=== PATIENT | female | born 1950 | race Caucasian/White ===

== ENCOUNTER → 2017-05-01 09:24 | Outpatient (CLI) | payer OTHER, SELFPAY ==
[2017-05-01 12:39] LABS: Anion Gap 7 (5-15); BUN 23 mg/dL (7-18); BUN/Creat Ratio 24.4 RATIO (10-20); Calcium,Total 9.1 mg/dL (8.5-10.1); Chloride 102 mmol/L (98-107); Creatinine, Serum 0.94 mg/dL (0.55-1.02); EST Glomerular Filtration Rate 63 mL/min (>60); Est Glom Filt Rate - Afr Amer 76 mL/min (>60); Glucose 92 mg/dL (74-106); Phosphorus 3.2 mg/dL (2.5-4.9); Potassium 3.7 mmol/L (3.5-5.1); Sodium Level 137 mmol/L (136-145); Thyroid Stim Hormone (TSH) 1.92 uIU/mL (0.358-3.74)
[2017-05-01 12:57] LABS: Vitamin D,25 Hydroxy 46.4 ng/mL (29.95-100.01)
== END ==
PROVIDERS: Family Provider Family Medicine; PCP Family Medicine; Visit Provider Family Medicine
DX: M81.0 Age-related osteoporosis without current pathological fracture (principal)
CPT/HCPCS: 36415; 80048; 82306; 82330; 84100; 84443

== ENCOUNTER → 2017-10-09 09:47 | Outpatient (CLI) | payer MEDICARE, OTHER, SELFPAY | PROVIDERS: Family Provider Family Medicine; PCP Family Medicine; Visit Provider Family Medicine | DX: Z12.31 Encounter for screening mammogram for malignant neoplasm of breast (principal) | CPT/HCPCS: 77063; 77067 ==

== ENCOUNTER → 2018-02-12 08:43 | Outpatient (CLI) | payer MEDICARE, OTHER, SELFPAY ==
[2018-02-12 10:46] LABS: AST(SGOT) 26 U/L (15-37); Alanine Aminotransfer ALT/SGPT 38 U/L (13-56); Alkaline Phosphatase 72 U/L (45-117); Anion Gap 10 (5-15); BUN 25 mg/dL (7-18); BUN/Creat Ratio 18.4 RATIO (10-20); Calcium,Total 9.4 mg/dL (8.5-10.1); Chloride 105 mmol/L (98-107); Cholesterol 185 mg/dL (200); Creatinine, Serum 1.36 mg/dL (0.55-1.02); EST Glomerular Filtration Rate 41 mL/min (>60); Est Glom Filt Rate - Afr Amer 50 mL/min (>60); Glucose 89 mg/dL (74-106); High Density Lipoprotein 40 mg/dL; Potassium 4.1 mmol/L (3.5-5.1); Sodium Level 141 mmol/L (136-145); Triglycerides 165 mg/dL; Very Low Density Lipoprotein 33 mg/dL (5-40)
--- OUTSIDE RECORDS SUMMARY | 2018-03-30 21:16 | XMS RPT_ITS ---
:1950 Author Organization OHIP Care Team Providers Name Role Phone José Fernandez Attending Unavailable José Fernandez Referring Unavailable Jim, [facility] Unavailable José Fernandez Attending Unavailable Jim, José Referring Unavailable [facility] Unavailable José Fernandez Attending Unavailable Jim, [facility] Unavailable PROBLEMS PROBLEMS DATE TYPE CONDITION / CODE ATTENDING STATUS SOURCE 02/12/2018 Unknown 401.9 - Unspecified Jim, Active [facility] essential [facility] hypertension / Hospital 401.9(ICD-9) Repository 02/12/2018 Unknown I10 - Essential Jim, Active [facility] [place] (primary) [facility] hypertension / Hospital I10(ICD-10) Repository 02/12/2018 Unknown 272.4 - Other and Ran[place]ka, Active [facility] unspecified [facility] hyperlipidemia / Hospital 272.4(ICD-9) Repository 02/12/2018 Unknown E78.5 - Jim, Active [place] Hyperlipidemia, [facility] unspecified / Hospital E78.5(ICD-10) Repository 10/09/2017 Unknown Z12.31 - Encounter Jim Active [facility] [place] for screening [facility] mammogram for Hospital malignant neoplasm Repository of breast / Z12.31(ICD-10) PROCEDURES PROCEDURES No Procedure Records FoundRESULTS RESULTS COMPREHENSIVE METABOLIC Collected: 02/12/2018 Status: F Source: [place] [facility] Order Comment: Order Date: 08/18/17 Order Info: [id number] - CMP Order Info: 84024-7 - LIPID TYPE CODE TESTS RESULT OUT OF RANGE REFERENCE UNITS LAB L501.0100 74-106 mg/dL Normal GLU 89 Result Comment: Please note revised GLUCOSE reference range effective 2017. LAB L501.1000 7-18 mg/dL High BUN 25 LAB L501.1100 0.55-1.02 mg/dL High CREAT,SERUM 1.36 Result Comment: The validity of the calculated GFR AND GFRAA in patients over 70 years has not been determined. Clinical correlation is essential. LAB L501.1110 >60 mL/min Low EST GFR 41 Result Comment: Non- GFR Calc LAB L501.1115 >60 mL/min Low EST GFR - AA 50 Result Comment: GFR Calc LAB L501.1300 10-20 RATIO Normal BUN/CRE 18.4 LAB L501.1500 6.4-8.2 g/dL T Normal PROT 8.0 LAB L501.1800 3.2-5.0 g/dL Normal ALB 4.0 LAB L501.1950 2.2-4.2 g/dL Normal GLOB 4.0 LAB L501.2000 0.9-2.4 RATIO Normal A/G 1.0 LAB L501.2200 8.5-10.1 mg/dL CA Normal 9.4 LAB L501.4100 15-37 U/L Normal AST 26 LAB L501.4305 45-117 U/L Normal ALK P 72 LAB L501.4405 13-56 U/L Normal ALT 38 LAB L501.4600 0.20-1.00 mg/dL T Normal BILI 0.90 LAB L501.5300 136-145 mmol/L NA Normal 141 LAB L501.5600 3.5-5.1 mmol/L K Normal 4.1 LAB L501.5900 98-107 mmol/L CL Normal 105 LAB L501.6100 21.0-32.0 mmol/L Normal CO2 26.0 LAB L501.6200 5-15 Normal GAP 10 Performed By: #### L500.4050, L500.4100 #### [facility] [place] [address], [address] LIPID PROFILE Collected: 02/12/2018 Status: F Source: [place] 8:48 AM [facility] [place] [place] REPOSITORY Order Comment: Order Date: 08/18/17 Order Info: [id number] - CMP Order Info: 71523-5 - LIPID TYPE CODE TESTS RESULT OUT OF RANGE REFERENCE UNITS LAB L501.4900 200 mg/dL Normal CHOL 185 Result Comment: <200 mg/dL Desirable 200-240 mg/dL Borderline >240 mg/dL High Risk LAB L501.5000 mg/dL Normal TRIG 165 Result Comment: The drugs N-Acetylcysteine and Metamizole may falsely depress this assay. Serum Triglycerides Reference Interval Normal <150 mg/dL Borderline high 150 - 199 mg/dL High 200 - 499 mg/dL Very High > or = 500 mg/dL LAB L501.6400 mg/dL Normal HDL 40 Result Comment: The drugs N-Acetylcysteine and Metamizole may falsely depress this assay. Reference Range HDL <40 mg/dL Low HDL Cholesterol HDL >or= 60 mg/dL High HDL Cholesterol LAB L501.6500 0-130 mg/dL Normal LDL 112 LAB L501.6600 5-40 mg/dL Normal VLDL 33 Performed By: #### L500.4050, L500.4100 #### [facility] [address] [place], [place], [address] SCREENING MAMM (CAD), Observed: 10/09/2017 Status: F Source: [place] TREVIZO 9:55 AM [facility] [place] [place] REPOSITORY [facility] Imaging Services [address] [place] [address] SCREENING MAMM (CAD), BILAT MR#: [id number] Acct: [id number] Name: SHAYLEE COUCH Rep #: [id number] : 1950 F 67 From: Erik Hearn MD PCP: José Fernandez MD Status: REG CLI Study: SCREENING MAMM (CAD), BILAT Date of Exam: 10/09/17 Exam# [id number] Ordering Dr: Jaswant Fernandez MD MAMMOGRAPHY - BILATERAL SCREENING 3-D LINCOLN SYNTHESIS REASON FOR EXAM: Female, 67 years old. Bilateral Screening 3-D tomosynthesis PERTINENT HISTORY: No significant family history. TECHNIQUE: 2-D mammograms and 3-D Lincoln synthesis of the breast (s) were performed. CAD was performed. COMPARISON: October 07, 2016, July 27, 2015 FINDINGS: The breast composition is almost entirely fat. Scattered benign calcifications abnormal-appearing are seen. No dense spiculated masses or suspicious microcalcifications are identified. No architectural distortion is identified. There is no skin thickening or retraction. There has been no significant change since the prior study. BI/SCREENING MAMM (CAD), BILAT IMPRESSION: No mammographic signs of malignancy. Routine yearly mammograms recommended. ASSESSMENT CATEGORY: BIRADS Category 2: Benign. A letter regarding these results will be sent to the patient by the facility within 30 days. FOLLOW UP RECOMMENDATION: Yearly follow up mammogram recommended. (A) Approximately 10% of breast cancers are not detected by mammography. A normal mammogram should not delay biopsy of a clinically suspicious abnormality. Electronically Signed: Erik Hearn MD at 18:46 EDT , Service support , CC: José Fernandez MD Wing Commander: Signed CALCIUM IONIZED Collected: 05/01/2017 Status: F Source: [place] 9:50 AM [facility] [place] [place] REPOSITORY TYPE CODE TESTS RESULT OUT OF RANGE REFERENCE UNITS LAB L3100.9600 4.5-5.6 mg/dL Normal IONIZED CA 5.4 Result Comment: Performed at: - [facility] [id number] Automatic Pad Making Machine Operator: Jose Luis Fine PhD, Phone: [phone] Performed By: #### L3100.9600 #### [facility] (refer to report for specific site) refer to report for address and phone number BASIC METABOLIC Collected: 05/01/2017 Status: F Source: [place] PROFILE (BMP) 9:29 AM [facility] [place] [place] REPOSITORY Order Comment: Order Date: 10/21/16 Order Info: [id number] - BMP Order Info: [id number] - PHOS Order Info: 3016-3 - TSH TYPE CODE TESTS RESULT OUT OF RANGE REFERENCE UNITS LAB L501.0100 74-106 mg/dL Normal GLU 92 Result Comment: Please note revised GLUCOSE reference range effective 2017. LAB L501.1000 7-18 mg/dL High BUN 23 LAB L501.1100 0.55-1.02 mg/dL Normal CREAT,SERUM 0.94 Result Comment: The validity of the calculated GFR AND GFRAA in patients over 70 years has not been determined. Clinical correlation is essential. LAB L501.1110 >60 mL/min Normal EST GFR 63 Result Comment: Non- GFR Calc LAB L501.1115 >60 mL/min Normal EST GFR - AA 76 Result Comment: GFR Calc LAB L501.1300 10-20 RATIO High BUN/CRE 24.4 LAB L501.2200 8.5-10.1 mg/dL CA Normal 9.1 LAB L501.5300 136-145 mmol/L NA Normal 137 LAB L501.5600 3.5-5.1 mmol/L K Normal 3.7 LAB L501.5900 98-107 mmol/L CL Normal 102 LAB L501.6100 21.0-32.0 mmol/L Normal CO2 28.0 LAB L501.6200 5-15 Normal GAP 7 Performed By: #### L500.2500, L501.2300, L501.9520, L506.1000 #### [facility] [address] [place], [address] PHOSPHORUS Collected: 05/01/2017 Status: F Source: [place] 9:29 AM [facility] [place] [place] REPOSITORY Order Comment: Order Date: 10/21/16 Order Info: [id number] - BMP Order Info: [id number] - PHOS Order Info: 3016-3 - TSH TYPE CODE TESTS RESULT OUT OF RANGE REFERENCE UNITS LAB L501.2300 2.5-4.9 mg/dL Normal PHOS 3.2 Performed By: #### L500.2500, L501.2300, L501.9520, L506.1000 #### [facility] [address] [place], [address] THYROID STIM HORMONE Collected: 05/01/2017 Status: F Source: [place] (TSH) 9:29 AM [facility] [place] [place] REPOSITORY Order Comment: Order Date: 10/21/16 Order Info: [id number] - BMP Order Info: [id number] - PHOS Order Info: 3016-3 - TSH TYPE CODE TESTS RESULT OUT OF RANGE REFERENCE UNITS LAB L501.9520 0.358-3.74 uIU/mL Normal TSH 1.92 Performed By: #### L500.2500, L501.2300, L501.9520, L506.1000 #### [facility] [address] [place], [address] VITAMIN D,25 HYDROXY Collected: 05/01/2017 Status: F Source: [place] 9:29 AM [facility] [place] [place] REPOSITORY Order Comment: Order Date: 10/21/16 Order Info: [id number] - VITD25 TYPE CODE TESTS RESULT OUT OF RANGE REFERENCE UNITS LAB L506.1000 29.95-100.01 ng/mL Normal Vitamin D 46.4 25-OH Result Comment: Vitamin D 25(OH) Status Range Deficiency <20 ng/mL (50nmol/L) Insuffciency 20 - 30 ng/mL (50 - 75 nmol/L) Sufficiency 30 - 100 ng/mL (75 - 250 nmol/L) Toxicity >100 ng/mL (>250 nmol/L) Performed By: #### L500.2500, L501.2300, L501.9520, L506.1000 #### [facility] [address] [place], [address] ALLERGIES ALLERGIES DATE TYPE / CODE NAME / CODE REACTION SEVERITY SOURCE 05/23/2013 Drug simvastatin/ Pain in joints Unknown [facility] Allergy/4160 [id number](R [facility] [address](SNOMED XNORM) Repository CT) ENCOUNTERS ENCOUNTERS ADMIT/DISCHARGE ACCOUNT ADMITTING ENCOUNTER LOCATION SOURCE NUMBER CLASS 02/12/2018 [id number] Ambulatory [facility] [place] 7 [facility] ing:MTLAB Repository 10/09/2017 [id number] Ambulatory [place] [facility] 5 [facility] ing:OPBI Repository 05/01/2017 [id number] Ambulatory [facility] 9 [facility] ing:MTLAB Repository PAYERS PAYERS ENCOUNTER GUARANTOR PAYER SUBSCRIBER SOURCE 02/12/2018 ANIKET [id number] Primary SHAYLEE LUA Insurance:MEDICARE BODLEDOB: [facility] [place] A BPolicy [id number] Hospital [address]Djz: (330) Number: Repository [phone] () [id number] Date:2018-02-12 02/12/2018 Secondary SHAYLEE L [facility] [place] Insurance:AETNA SR BODLEDOB: [id number] Number: Repository [id number] Date:[id number] SENIOR SUPPLEMENT [address] [place] [id number]: 02/12/2018 Tertiary NOT GIVENUNK [place] Insurance:SELF PAY [facility]: Effective Repository Date:2018-02-12 10/09/2017 ANIKET [id number] Primary SHAYLEE LUA Insurance:MEDICARE BODLEDOB: [place] PART A BPolicy [id number] [address]Jij: (330) Number: Repository [phone] () [id number] Date:2017-08-20 10/09/2017 Secondary SHAYLEE L [facility] [place] Insurance:AETNA SR BODLEDOB: Community SUPPLEMENT [facility] [id number] Hospital Number: Repository [id number] Date:[id number] SENIOR SUPPLEMENT [id number] [place] [id number]: 10/09/2017 Tertiary NOT GIVENUNK [place] Insurance:SELF PAY [facility] Number: Effective Repository Date:2017-08-20 05/01/2017 ANIKET [id number] Primary ANIKET Cristopher LUA Insurance:AULTCAREPol BODLEDOB: [place] icy Number: [id number] Hospital [address]Hwk: [phone] [id number] Repository [phone] () Date:[id number] [address] [place] [id number]: 05/01/2017 Secondary NOT GIVENUNK [place] Insurance:SELF PAY [facility] Number: Effective Repository Date:2017-05-01
== END ==
PROVIDERS: Family Provider Family Medicine; PCP Family Medicine; Referring Provider Family Medicine; Visit Provider Family Medicine
DX: I10 Essential (primary) hypertension (principal); E78.5 Hyperlipidemia, unspecified
CPT/HCPCS: 36415; 80053; 80061

== ENCOUNTER → 2018-09-07 08:00 | Outpatient (CLI) | payer MEDICARE, OTHER, SELFPAY | PROVIDERS: Family Provider Family Medicine; PCP Family Medicine; Referring Provider Family Medicine; Visit Provider Family Medicine | DX: Z00.00 Encounter for general adult medical examination without abnormal findings (principal) ==

== ENCOUNTER → 2018-09-20 09:40 | Outpatient (CLI) | payer MEDICARE, OTHER, SELFPAY ==
[2018-09-20 12:43] LABS: Vitamin D,25 Hydroxy 51.3 ng/mL (29.95-100.01)
[2018-09-20 12:53] LABS: Anion Gap 7 (5-15); BUN 21 mg/dL (7-18); BUN/Creat Ratio 18.6 RATIO (10-20); Calcium,Total 9.4 mg/dL (8.5-10.1); Chloride 105 mmol/L (98-107); Creatinine, Serum 1.13 mg/dL (0.55-1.02); EST Glomerular Filtration Rate 51 mL/min (>60); Est Glom Filt Rate - Afr Amer 62 mL/min (>60); Glucose 100 mg/dL (74-106); Potassium 4.2 mmol/L (3.5-5.1); Sodium Level 140 mmol/L (136-145); Thyroid Stim Hormone (TSH) 1.66 uIU/mL (0.358-3.74)
== END ==
PROVIDERS: Family Provider Family Medicine; PCP Family Medicine; Visit Provider Family Medicine
DX: M81.0 Age-related osteoporosis without current pathological fracture (principal); E78.5 Hyperlipidemia, unspecified
CPT/HCPCS: 36415; 80048; 82306; 84443

== ENCOUNTER → 2018-10-19 14:04 | Outpatient (CLI) | payer MEDICARE, OTHER, SELFPAY ==
--- NOTE | 2018-10-19 14:06 | BI_ITS ---
MAMMOGRAPHY - BILATERAL SCREENING 3-D TOMOSYNTHESIS REASON FOR EXAM: Female, 68 years old. Bilateral Screening 3-D tomosynthesis PERTINENT HISTORY: No significant family history. TECHNIQUE: 2-D mammograms and 3-D Tomosynthesis of the breast (s) were performed. CAD was performed. COMPARISON: 10/09/2017, 10/07/2016, 07/27/2015 FINDINGS: The breast composition is composed of scattered fibroglandular density. Scattered benign calcifications are seen. No dense spiculated masses or suspicious microcalcifications are identified. No architectural distortion is identified. There is no skin thickening or retraction. There has been no significant change since the prior study. BI/SCREEN MAMM (CAD) W/CARLITOS BILAT IMPRESSION: No mammographic signs of malignancy. Routine yearly mammograms recommended. ASSESSMENT CATEGORY: BIRADS Category 2: Benign. A letter regarding these results will be sent to the patient by the facility within 30 days. FOLLOW UP RECOMMENDATION: Yearly follow up mammogram recommended. (A) Approximately 10% of breast cancers are not detected by mammography. A normal mammogram should not delay biopsy of a clinically suspicious abnormality. Electronically Signed: Fito Botello MD at 15:36 EDT Tel [phone], Service support ,
--- NOTE | 2018-10-19 14:14 | BD_ITS ---
STUDY: DUAL ENERGY X-RAY ABSORPTIOMETRY / DXA REASON FOR EXAM: Female, 68 years old. The patient is postmenopausal. TECHNIQUE: Bone Mineral Density (BMD) measurements of lumbar spine and bilateral hips were obtained. COMPARISON: Comparison is made with prior study dated October 07, 2016. FINDINGS: Lumbar Spine (L1-L4): g/cm2 (0.786) / T-score (-3.2) / Z-score (-1.5) Findings are suggestive of osteoporosis with a high fracture risk. Left Femur Total: g/cm2 (0.847) / T-score (-1.3) / Z-score (0.0) Left Femoral Neck: g/cm2 (0.672) / T-score (-2.6) / Z-score (-1.1) Right Femur Total: g/cm2 (0.815) / T-score (-1.5) / Z-score (-0.2) Right Femoral Neck: g/cm2 (0.757) / T-score (-2.0) / Z-score (-0.5) The T-Scores on the most recent prior examination were: Lumbar Spine (L1-L4): There has been improvement of bone density since the previous examination. Left Femur Total: which represents an improvement of 5.5%. Right Femur Total: which represents an improvement of 3%. BD/Dexa Bone Density Study IMPRESSION: The patient is considered osteoporotic as outlined below according to World Chaim Organization (WHO) criteria with a high fracture risk. There has been improvement of bone density since the previous examination. Reference Information: The T-score is the number of standard deviations above or below the standard which is normal for young adults at their peak bone mineral density. The World Health Organization (WHO) interprets the T-scores as follows: Above -1 Normal bone density Between -1 and -2.5 Osteopenia Equal to / or below -2.5 Osteoporosis As a practical clinical guideline, osteopenia may be graded as follows: Mild -1 through -1.5 Moderate -1.6 through -2.0 Severe -2.1 through -2.4 The Z-score is the number of standard deviations above or below age-matched controls. A Z-score of less than -1.5 would be considered abnormal. References: 1. NIH Osteoporosis and Related Bone Diseases http://www.osteo.org 2. International Society for Clinical Densitometry http://www.iscd.org 3. National Osteoporosis Foundation http://www.nof.org Electronically Signed: Maxi Shields, at 9:07 EDT , Service support ,
== END ==
PROVIDERS: Family Provider Family Medicine; PCP Family Medicine; Referring Provider Family Medicine; Visit Provider Family Medicine
DX: Z12.31 Encounter for screening mammogram for malignant neoplasm of breast (principal); Z78.0 Asymptomatic menopausal state
CPT/HCPCS: 77063; 77067; 77080

== ENCOUNTER → 2019-03-21 08:38 | Outpatient (CLI) | payer MEDICARE, OTHER, SELFPAY ==
[2019-03-21 11:17] LABS: BUN 23 mg/dL (7-18); Creatinine, Serum 1.15 mg/dL (0.55-1.02); Glucose 100 mg/dL (74-106)
[2019-03-21 11:18] LABS: AST(SGOT) 21 U/L (15-37); Alanine Aminotransfer ALT/SGPT 38 U/L (13-56); Albumin, Serum 4.2 g/dL (3.2-5.0); Alkaline Phosphatase 74 U/L (45-117); Anion Gap 6 (5-15); Calcium,Total 9.3 mg/dL (8.5-10.1); Chloride 105 mmol/L (98-107); Cholesterol 155 mg/dL (200); EST Glomerular Filtration Rate 50 mL/min (>60); Est Glom Filt Rate - Afr Amer 60 mL/min (>60); High Density Lipoprotein 35 mg/dL; Potassium 3.8 mmol/L (3.5-5.1); Protein, Total 8.2 g/dL (6.4-8.2); Sodium Level 137 mmol/L (136-145); Thyroid Stim Hormone (TSH) 2.24 uIU/mL (0.358-3.74); Triglycerides 186 mg/dL; Very Low Density Lipoprotein 37 mg/dL (5-40)
[2019-03-21 11:19] LABS: Vitamin D,25 Hydroxy 58.9 ng/mL (29.95-100.01)
== END ==
PROVIDERS: PCP Family Medicine; Visit Provider Family Medicine
DX: I10 Essential (primary) hypertension (principal); M81.0 Age-related osteoporosis without current pathological fracture
CPT/HCPCS: 36415; 80053; 80061; 82306; 84443

== ENCOUNTER → 2019-09-26 09:08 | Outpatient (CLI) | payer MEDICARE, OTHER, SELFPAY ==
[2019-09-26 10:14] LABS: PTHIN 38.2 pg/mL (18.4-80.1)
[2019-09-26 10:18] LABS: Vitamin D,25 Hydroxy 94.6 ng/mL
[2019-09-26 10:25] LABS: ALB/GLOB Ratio 1.1 RATIO (0.9-2.4); AST(SGOT) 25 U/L (15-37); Alanine Aminotransfer ALT/SGPT 34 U/L (13-56); Albumin, Serum 4.2 g/dL (3.2-5.0); Alkaline Phosphatase 62 U/L (45-117); Anion Gap 5 (5-15); BUN 33 mg/dL (7-18); BUN/Creat Ratio 27.3 RATIO (10-20); Calcium,Total 9.1 mg/dL (8.5-10.1); Chloride 104 mmol/L (98-107); Cholesterol 144 mg/dL (200); Creatinine, Serum 1.21 mg/dL (0.55-1.02); EST Glomerular Filtration Rate 47 mL/min (>60); Est Glom Filt Rate - Afr Amer 57 mL/min (>60); Globulin 3.9 g/dL (2.2-4.2); Glucose 94 mg/dL (74-106); High Density Lipoprotein 36 mg/dL; Potassium 3.8 mmol/L (3.5-5.1); Protein, Total 8.1 g/dL (6.4-8.2); Sodium Level 138 mmol/L (136-145); Triglycerides 126 mg/dL; Very Low Density Lipoprotein 25 mg/dL (5-40)
== END ==
PROVIDERS: PCP Family Medicine; Referring Provider Family Medicine; Visit Provider Family Medicine
DX: E78.5 Hyperlipidemia, unspecified (principal); M81.0 Age-related osteoporosis without current pathological fracture
CPT/HCPCS: 36415; 80053; 80061; 82306; 83970

== ENCOUNTER → 2019-09-30 17:27 | Outpatient (CLI) | payer MEDICARE, OTHER, SELFPAY | PROVIDERS: PCP Family Medicine; Referring Provider Family Medicine; Visit Provider Family Medicine | DX: Z20.828 Contact with and (suspected) exposure to other viral communicable diseases (principal) | CPT/HCPCS: 87635; U0003 ==

== ENCOUNTER → 2019-10-24 14:23 | Outpatient (CLI) | payer MEDICARE, OTHER, SELFPAY ==
--- NOTE | 2019-10-24 14:26 | BI_ITS ---
MAMMOGRAPHY - BILATERAL SCREENING REASON FOR EXAM: Female, 69 years old. Routine annual screening examination. PERTINENT HISTORY: Non-contributory. TECHNIQUE: Digital bilateral breast carlitos (3D mammographic acquisition) in the CC and MLO projections. 2-D mediolateral oblique (MLO) and craniocaudad (CC) views of both breasts were obtained. CAD: Full Field Digital Mammography with Computer Added Detection was performed. COMPARISON: Comparison is made with prior study dated 10/19/2018 and 10/09/2017. FINDINGS: Breast Composition: The breasts are almost entirely fatty. There are no dominant masses or suspicious calcifications. Small benign-appearing bilateral axillary lymph nodes. No other significant abnormalities are identified. There has been no significant change since the prior study. BI/SCREEN MAMM (CAD) W/CARLITOS BILAT IMPRESSION: Stable bilateral screening mammogram. Yearly follow-up mammogram recommended. (A) ASSESSMENT CATEGORY: BIRADS Category 2: Benign. A letter regarding these results will be sent to the patient by the facility within 30 days. Approximately 10% of breast cancers are not detected by mammography. A normal mammogram should not delay biopsy of a clinically suspicious abnormality. [id number] Electronically Signed: Maxi Shields, at 15:33 EDT , Service support ,
== END ==
PROVIDERS: PCP Family Medicine; Referring Provider Family Medicine; Visit Provider Family Medicine
DX: Z12.31 Encounter for screening mammogram for malignant neoplasm of breast (principal)
CPT/HCPCS: 77063; 77067

== ENCOUNTER → 2020-02-17 12:18 | Outpatient (CLI) | payer MEDICARE, OTHER, SELFPAY ==
[2020-02-18 09:13] LABS: SARS-COV-2 TOTAL ABS Reactive (Nonreactive)
[2020-02-20 10:15] LABS: Vitamin B12 337 pg/mL (211-911)
[2020-02-23 13:27] LABS: Vitamin B1, Thiamine 131.4 nmol/L (66.5-200.0)
== END ==
PROVIDERS: PCP Family Medicine; Referring Provider Family Medicine; Visit Provider Family Medicine
DX: G62.9 Polyneuropathy, unspecified (principal)
CPT/HCPCS: 36415; 82607; 84425; 86769

== ENCOUNTER → 2020-03-21 09:49 | Outpatient (CLI) | payer MEDICARE, OTHER, SELFPAY ==
[2020-03-21 12:25] LABS: Anion Gap 3 (5-15); BUN 25 mg/dL (7-18); BUN/Creat Ratio 25.1 RATIO (10-20); Calcium,Total 9.4 mg/dL (8.5-10.1); Chloride 109 mmol/L (98-107); EST Glomerular Filtration Rate 59 mL/min (>60); Est Glom Filt Rate - Afr Amer 71 mL/min (>60); Glucose 86 mg/dL (74-106); Potassium 4.2 mmol/L (3.5-5.1); Sodium Level 140 mmol/L (136-145)
== END ==
PROVIDERS: PCP Family Medicine; Referring Provider Family Medicine; Visit Provider Family Medicine
DX: I10 Essential (primary) hypertension (principal)
CPT/HCPCS: 36415; 80048

== ENCOUNTER → 2020-10-25 11:50 | Outpatient (CLI) | payer MEDICARE, OTHER, SELFPAY ==
--- NOTE | 2020-10-25 11:50 | BI_ITS ---
MAMMOGRAPHY - BILATERAL SCREENING REASON FOR EXAM: Female, 70 years old. Routine annual screening examination. PERTINENT HISTORY: Non-contributory. TECHNIQUE: Digital bilateral breast carlitos (3D mammographic acquisition) in the CC and MLO projections. 2-D mediolateral oblique (MLO) and craniocaudad (CC) views of both breasts were obtained. CAD: Full Field Digital Mammography with Computer Added Detection was performed. COMPARISON: Comparison is made with prior study 10/24/2019 and 10/19/2018. FINDINGS: Breast Composition: The breasts are almost entirely fatty. There are no dominant masses or suspicious calcifications. Stable small benign appearing bilateral axillary lymph nodes. No other significant abnormalities are identified. There has been no significant change since the prior study. BI/SCRN MAMM (CAD)W/CARLITOS BILAT IMPRESSION: Stable bilateral screening mammogram. Yearly follow-up mammogram recommended. (A) ASSESSMENT CATEGORY: BIRADS Category 2: Benign. A letter regarding these results will be sent to the patient by the facility within 30 days. Approximately 10% of breast cancers are not detected by mammography. A normal mammogram should not delay biopsy of a clinically suspicious abnormality. [id number] Electronically Signed: Maxi Shields MD at 12:35 EDT , Service support ,
--- NOTE | 2020-10-25 12:08 | BD_ITS ---
STUDY: DUAL ENERGY X-RAY ABSORPTIOMETRY / DXA REASON FOR EXAM: Female, 70 years old. 733.00OsteoporosisBONE DENSITY REASON FOR EXAM TECHNIQUE: Bone Mineral Density (BMD) measurements of lumbar spine and bilateral hips were obtained. COMPARISON: Comparison is made with prior study 10/19/2018. FINDINGS: Lumbar Spine (L1-L4): g/cm2 (0.819) / T-score (-1.8) / Z-score (0.2) Findings are suggestive of osteopenia with a moderate fracture risk. Left Femur Total: g/cm2 (0.759) / T-score (-1.5) / Z-score (0.0) Left Femoral Neck: g/cm2 (0.570) / T-score (-2.5) / Z-score (-0.8) Right Femur Total: g/cm2 (0.743) / T-score (-1.6) / Z-score (-0.2) Right Femoral Neck: g/cm2 (0.54) / T-score (-2.7) / Z-score (-0.9) The T-Scores on the most recent prior examination were: Lumbar Spine (L1-L4): There has been improvement of bone density since the previous examination. Left Femur Total: which represents a worsening of 3.4%. Right Femur Total: which represents a worsening of 1.5%. BD/Dexa Bone Density Study IMPRESSION: The patient is considered osteoporotic as outlined below according to World Chaim Organization (WHO) criteria with a high fracture risk. There has been worsening of bone density since the previous examination. Reference Information: The T-score is the number of standard deviations above or below the standard which is normal for young adults at their peak bone mineral density. The World Health Organization (WHO) interprets the T-scores as follows: Above -1 Normal bone density Between -1 and -2.5 Osteopenia Equal to / or below -2.5 Osteoporosis As a practical clinical guideline, osteopenia may be graded as follows: Mild -1 through -1.5 Moderate -1.6 through -2.0 Severe -2.1 through -2.4 The Z-score is the number of standard deviations above or below age-matched controls. A Z-score of less than -1.5 would be considered abnormal. References: 1. NIH Osteoporosis and Related Bone Diseases www osteo.org 2. International Society for Clinical Densitometry www iscd.org 3. National Osteoporosis Foundation www nof.org Electronically Signed: Maxi Shields MD at 7:57 EDT , Service support ,
== END ==
PROVIDERS: PCP Family Medicine; Referring Provider Family Medicine; Visit Provider Family Medicine
DX: Z12.31 Encounter for screening mammogram for malignant neoplasm of breast (principal); M81.0 Age-related osteoporosis without current pathological fracture
CPT/HCPCS: 77063; 77067; 77080

== ENCOUNTER 2020-10-30 05:18 | Day surgery (SDC) | payer MEDICARE, OTHER, SELFPAY ==
[2020-10-30 05:41] VITALS: BP 133/75; PULSE 64; RESP 16; TEMP 36.8; O2SAT 100; BMI 25.5
--- NOTE | 2020-10-30 06:13 | HP.PCM_ITS ---
HPI - General HPI Narrative SHAYLEE COUCH, is a 70 F who presents for a surveillance colonoscopy. She has a previous history of colon polyps. She states that she has not had polyps on her last couple colonoscopies. No abdominal pain. No bright red blood per rectum or melena. She did have Covid-19 January 2020. She claims that she did not require hospitalization. She claims no lingering symptoms. No history of DVT. She states she was able to tolerate her bowel prep. [facility] Medical History (Updated 10/30/20 @ 06:[address] Terry Soto MD) Cardiology follow-up encounter Chest pain Gastric reflux High cholesterol History of diverticulitis History of stress test Hypertension Non-smoker Wears glasses Home Medications aspirin 81 mg PO DAILY@0800 05/23/13 [History Last Taken 10/22/20] atorvastatin 10 mg PO QHS 05/23/13 [History Last Taken Unknown] calcium phos,dibas-vitamin D3 [Vitamin D (with calcium)] 1 tab PO BID 10/24/20 [History Last Taken Unknown] cholecalciferol (vitamin D3) [Vitamin D3] 50 mcg PO DAILY 10/24/20 [History Last Taken Unknown] denosumab [Prolia] 60 mg SUBCUT .Q6MO 10/24/20 [History Last Taken Unknown] famotidine [Pepcid] 20 mg PO BID 10/24/20 [History Last Taken 10/30/20] lisinopril 20 mg PO DAILY 10/24/20 [History Last Taken 10/30/20] vitamin X56-tiyra acid 1 tab PO DAILY 10/24/20 [History Last Taken Unknown] Allergy/AdvReac Type Severity Reaction Status Date / Time simvastatin AdvReac Pain in Verified 10/30/20 05:38 joints Surgical History (Updated 10/24/20 @ 13:33 by Corina Frank) Hx of bilateral cataract extraction Hx of colonoscopy Social History Smoking Status: Never smoker ROS Constitutional Constitutional: Reports systems reviewed and no addt'l complaints, except as documented Cardiovascular Cardiovascular: Denies chest pain Respiratory/Chest Respiratory/Chest: Denies shortness of breath at rest Gastrointestinal Gastrointestinal: Denies abdominal pain, change in bowel habits, hematochezia or melena Vital Signs Vital Signs Vital Signs: 10/30/20 05:41 Temperature 98.2 F Temperature Source Temporal Pulse Rate 64 Respiratory Rate 16 Respiratory Pattern Normal Blood Pressure 133/75 H Blood Pressure Mean 94 Blood Pressure Source Monitor Blood Pressure Position Semi-Fowlers Blood Pressure Location Right Arm Pulse Ox 100 Oxygen Delivery Method Room Air Weight Weight: 135 lb 2.294 oz Body Mass Index (BMI) 25.5 Physical Exam Const alert, oriented x3 and no apparent distress General Appearance: cooperative and comfortable Eyes General Eye: normal appearance of both eyes Neck General: normal visual inspection Chest inspection of chest normal Resp Effort and Inspection: able to speak in complete sentences and symmetric chest movement Auscultation: clear to auscultation bilaterally Cardio regular rate and regular rhythm GI soft to palpation, non-tender and non-distended Extremity no calf tenderness Neuro oriented x3 Psych thought process normal Assessment & Plan Assessment/Plan (1) Screening for intestinal cancer: PLAN: 70-year-old female. She presents via open access today for screening colonoscopy. She carries a previous history of remote colon polyps. She is aware of the technique, benefit, risk, alternatives. She has had an opportunity to ask and have questions answered. We will proceed as noted. Terry Soto M.D., F.A.C.S.
[2020-10-30] MEDS: Midazolam 5 MG/ML Syringe (06:27)
--- NOTE | 2020-10-30 06:30 | COLBX_PTH ---
PATIENT: SHAYLEE COUCH LOC: EN U#:[id number] AGE/SX: 70/F ROOM: RE10/30/[address]: Dr. Terry Soto MD : 1950 BED: DIS: 10/30/2020 SPEC #: [id number] RECD: 10/30/20 11:47 STATUS: GOLDIE TORRES #: [id number] ELOY: 10/30/20 06:[address]: Terry Soto DEPT: SURGICAL PATHOLOGY RECD BY: Leticia Jordan ENTERED: 10/30/20 12:59 SP TYPE: COLON BX OTHR DR: Dr. José Fernandez MD Tissues: SPLENIC FLEXURE Procedures: Surgery Specimen Level IV HEADER OPERATION: Colonoscopy ? 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 Mucosal lipoma. AM:randi 10/31/2020 MICROSCOPIC DESCRIPTION Slides are reviewed. GROSS DESCRIPTION Received in fixative is one container labeled with the patient's name and designated biopsy of splenic flexure polyp. The specimen consists of multiple irregular fragments of light nolasco soft tissue that in aggregate measure 0.5 x 0.2 x 0.1 cm. The specimen is totally submitted in one cassette. / KAUSHIK:randi 10/30/20 TC:5 CPT: 67336
--- NOTE | 2020-10-30 06:49 | OP.COLON_ITS ---
Patient Name: Lluvia Corado Procedure Date: 10/30/2020 6:08 AM Date of : 1950 Age: 70 Procedure: Colonoscopy Indications: High risk colon cancer surveillance: Personal history of colonic polyps Providers: Terry Soto MD Medicines: Midazolam 3 mg IV, Meperidine 100 mg IV Patient Profile: Last Colonoscopy: 5 years ago. Complications: No immediate complications. Procedure: Pre-Anesthesia Assessment: - Prior to the procedure, a History and Physical was performed, and patient medications and allergies were reviewed. The patient's tolerance of previous anesthesia was also reviewed. The risks and benefits of the procedure and the sedation options and risks were discussed with the patient. All questions were answered, and informed consent was obtained. Prior Anticoagulants: The patient has taken no previous anticoagulant or antiplatelet agents. ASA Grade Assessment: I - A normal, healthy patient. After reviewing the risks and benefits, the patient was deemed in satisfactory condition to undergo the procedure. After I obtained informed consent, the scope was passed under direct vision. Throughout the procedure, the patient's blood pressure, pulse, and oxygen saturations were monitored continuously. The colonoscope was introduced through the anus and advanced to the cecum, identified by appendiceal orifice and ileocecal valve. The colonoscopy was performed without difficulty. The patient tolerated the procedure well. The quality of the bowel preparation was good. The ileocecal valve and the appendiceal orifice were photographed. Moderate Sedation: Moderate (conscious) sedation was personally administered by the endoscopist. The following parameters were monitored: oxygen saturation, heart rate, blood pressure, and response to care. Total physician intraservice time was 15 minutes. Scope In: 6:29:21 AM Scope Withdrawal Time 0 hours 11 minutes 46 seconds Scope Out: 6:44:55 AM Total Procedure Duration Time 0 hours 15 minutes 34 seconds Findings: The digital rectal exam findings include non-thrombosed external hemorrhoids, non-thrombosed internal hemorrhoids and internal hemorrhoids that prolapse with straining, but spontaneously regress to the resting position (Grade II). A 5 mm polyp was found in the splenic flexure. The polyp was sessile. The polyp was removed with a cold biopsy forceps. Resection and retrieval were complete. Multiple diverticula were found in the sigmoid colon and descending colon. Impression: - Non-thrombosed external hemorrhoids, non-thrombosed internal hemorrhoids and internal hemorrhoids that prolapse with straining, but spontaneously regress to the resting position (Grade II) found on digital rectal exam. - One 5 mm polyp at the splenic flexure, removed with a cold biopsy forceps. Resected and retrieved. - Diverticulosis in the sigmoid colon and in the descending colon. Recommendation: - Discharge patient to home. - Resume previous diet. - Continue present medications. - Repeat colonoscopy in 5 years for surveillance based on pathology results. - Telephone my office for pathology results in 1 week. Procedure Code(s): --- Professional --- 63784, Colonoscopy, flexible; with biopsy, single or multiple 00639, 59, Moderate sedation services provided by the same physician or other qualified health customer care professional performing the diagnostic or therapeutic service that the sedation supports, requiring the presence of an independent trained observer to assist in the monitoring of the patient's level of consciousness and physiological status; initial 15 minutes of intraservice time, patient age 5 years or older Diagnosis Code(s): --- Professional --- Z86.010, Personal history of colonic polyps K64.1, Second degree hemorrhoids K64.4, Residual hemorrhoidal skin tags D12.3, Benign neoplasm of transverse colon (hepatic flexure or splenic flexure) K57.30, Diverticulosis of large intestine without perforation or abscess without bleeding CPT copyright 2017 [employer]. All rights reserved. The codes documented in this report are preliminary and upon voice and data technician review may be revised to meet current compliance requirements. Terry Soto MD 10/30/2020 6:49:22 AM This report has been signed electronically. Number of Addenda: 0 Note Initiated On: 10/30/2020 6:08 AM
[2020-10-30 06:50] VITALS: BP 103/80; BP 113/75; BP 122/79; BP 133/75; BP 141/88; BP 155/73; BP 95/70; BP 96/63; PULSE 62; RESP 16; TEMP 35.8; O2SAT 100; O2SAT 96
--- NOTE | 2020-10-30 06:50 | OP.CCLET_ITS ---
10/30/2020 Jaswant Fernandez [address] [place] [address] Re : Colonoscopy procedure for Lluvia Corado Dear Dr. Fernandez This procedure was performed on Friday, October 30, 2020. My impressions and recommendations are as follows: Impressions : - Non-thrombosed external hemorrhoids, non-thrombosed internal hemorrhoids and internal hemorrhoids that prolapse with straining, but spontaneously regress to the resting position (Grade II) found on digital rectal exam. - One 5 mm polyp at the splenic flexure, removed with a cold biopsy forceps. Resected and retrieved. - Diverticulosis in the sigmoid colon and in the descending colon. Recommendations : - Discharge patient to home. - Resume previous diet. - Continue present medications. - Repeat colonoscopy in 5 years for surveillance based on pathology results. - Telephone my office for pathology results in 1 week. My findings are described in the full procedure note, which is enclosed. If I can be of further assistance, please feel free to contact me at Doctor phone number(s): Work: . Sincerely, Terry Soto MD 10/30/2020 6:49:22 AM This report has been signed electronically.
[2020-10-30 07:00] VITALS: BP 133/75; BP 98/59; PULSE 60; RESP 16; O2SAT 94
[2020-10-30 07:06] VITALS: BP 106/65; BP 133/75; PULSE 61; RESP 16; TEMP 36.3; O2SAT 97
[2020-10-30 07:30] VITALS: BP 133/75
== END 2020-10-30 07:49 | disposition home or self-care (01) ==
LOC: EN 05:20 → AC 05:21
PROVIDERS: PCP Family Medicine; Referring Provider Family Medicine; Visit Provider Surgery
PROC: 0DJD8ZZ Inspection of Lower Intestinal Tract, Via Natural or Artificial Opening Endoscopic (ICD-10-PCS; CPT 45378; principal; 2020-10-30 06:25)
DX: Z12.11 Encounter for screening for malignant neoplasm of colon (principal); Z86.010 Personal history of colon polyps; K64.1 Second degree hemorrhoids; K64.4 Residual hemorrhoidal skin tags; D12.3 Benign neoplasm of transverse colon; K57.30 Diverticulosis of large intestine without perforation or abscess without bleeding; E78.00 Pure hypercholesterolemia, unspecified; K21.9 Gastro-esophageal reflux disease without esophagitis; I10 Essential (primary) hypertension; Z79.82 Long term (current) use of aspirin; Z79.899 Other long term (current) drug therapy
CPT/HCPCS: 45380; 88305; 99152; 99153; J7120

== ENCOUNTER → 2020-10-31 09:53 | Outpatient (CLI) | payer MEDICARE, OTHER, SELFPAY ==
[2020-10-31 12:43] LABS: PTHIN 29.7 pg/mL (18.4-80.1)
[2020-10-31 12:46] LABS: Anion Gap 8 (5-15); BUN 22 mg/dL (7-18); BUN/Creat Ratio 22.5 RATIO (10-20); Calcium,Total 9.4 mg/dL (8.5-10.1); Chloride 107 mmol/L (98-107); Creatinine, Serum 0.98 mg/dL (0.55-1.02); EST Glomerular Filtration Rate 60 mL/min (>60); Est Glom Filt Rate - Afr Amer 73 mL/min (>60); Glucose 91 mg/dL (74-106); Magnesium 2.1 mg/dL (1.6-2.6); Phosphorus 1.9 mg/dL (2.5-4.9); Potassium 3.8 mmol/L (3.5-5.1); Sodium Level 139 mmol/L (136-145)
== END ==
PROVIDERS: PCP Family Medicine; Referring Provider Family Medicine; Visit Provider Family Medicine
DX: M81.0 Age-related osteoporosis without current pathological fracture (principal)
CPT/HCPCS: 36415; 80048; 82330; 83735; 83970; 84100

== ENCOUNTER → 2021-10-10 | Outpatient (CLI) | payer MEDICARE, OTHER, SELFPAY ==
[2021-10-10 10:13] LABS: Hematocrit 37.7 % (37-47); Hemoglobin 12.3 g/dL (12.0-15.0); Mean Corp Hgb Conc 32.6 g/dL (32-36); Mean Corpuscular Hgb 30.8 pg (27.0-32.0); Mean Corpuscular Volume 94.3 fL (81-99); Mean Platelet Vol. 9.9 fl (6.2-12.0); Platelet Count 252 K/mm3 (150-450); RBC Distribution Width CV 11.9 % (11.6-14.6); RBC Distribution Width SD 42.1 fl (35.1-43.9); White Blood Count 4.9 K/mm3 (4.4-11.0)
[2021-10-10 10:37] LABS: PTHIN 44.4 pg/mL (18.4-80.1)
[2021-10-10 10:41] LABS: Vitamin D,25 Hydroxy 90.4 ng/mL
[2021-10-10 10:46] LABS: Anion Gap 5 (5-15); BUN 21 mg/dL (7-18); BUN/Creat Ratio 18.9 RATIO (10-20); Calcium,Total 9.1 mg/dL (8.5-10.1); Chloride 105 mmol/L (98-107); Creatinine, Serum 1.11 mg/dL (0.55-1.02); EST Glomerular Filtration Rate 52 mL/min (>60); Est Glom Filt Rate - Afr Amer 62 mL/min (>60); Glucose 95 mg/dL (74-106); Potassium 3.9 mmol/L (3.5-5.1); Sodium Level 138 mmol/L (136-145); Thyroid Stim Hormone (TSH) 2.03 uIU/mL (0.358-3.74)
[2021-10-11 17:13] LABS: H. Pylori Antibody (IgG) 0.79 (0.00-0.79)
== END | disposition home or self-care (01) ==
LOC: MTLAB 09:08
PROVIDERS: PCP Family Medicine; Referring Provider Family Medicine; Visit Provider Family Medicine
DX: M81.0 Age-related osteoporosis without current pathological fracture (principal); K21.9 Gastro-esophageal reflux disease without esophagitis; Z79.899 Other long term (current) drug therapy
CPT/HCPCS: 36415; 80048; 82306; 82330; 83970; 84443; 85027; 86677

== ENCOUNTER → 2021-10-28 | Outpatient (CLI) | payer MEDICARE, OTHER, SELFPAY ==
--- NOTE | 2021-10-28 11:54 | BI_ITS ---
MAMMOGRAPHY - BILATERAL SCREENING REASON FOR EXAM: Female, 71 years old. Routine annual screening examination. PERTINENT HISTORY: Non-contributory. TECHNIQUE: Digital bilateral breast carlitos (3D mammographic acquisition) in the CC and MLO projections. 2-D mediolateral oblique (MLO) and craniocaudad (CC) views of both breasts were obtained. CAD: Full Field Digital Mammography with Computer Added Detection was performed. COMPARISON: Comparison is made with prior study 10/25/2020 and 10/24/2019. FINDINGS: Breast Composition: There are scattered areas of fibroglandular density. There are no dominant masses or suspicious calcifications. Stable small benign-appearing bilateral axillary lymph nodes. No other significant abnormalities are identified. There has been no significant change since the prior study. BI/SCRN MAMM (CAD)W/CARLITOS BILAT IMPRESSION: Stable bilateral screening mammogram. Yearly follow-up mammogram recommended. (A) ASSESSMENT CATEGORY: BIRADS Category 2: Benign. A letter regarding these results will be sent to the patient by the facility within 30 days. Approximately 10% of breast cancers are not detected by mammography. A normal mammogram should not delay biopsy of a clinically suspicious abnormality. [id number] Electronically Signed: Maxi Shields MD at 12:48 EDT ,
== END | disposition home or self-care (01) ==
LOC: OPBI 11:53
PROVIDERS: PCP Family Medicine; Visit Provider Family Medicine
DX: Z12.31 Encounter for screening mammogram for malignant neoplasm of breast (principal)
CPT/HCPCS: 77063; 77067

== ENCOUNTER → 2022-10-09 | Outpatient (CLI) | payer MEDICARE, OTHER, SELFPAY ==
[2022-10-09 10:03] LABS: Hematocrit 37.4 % (37-47); Hemoglobin 11.9 g/dL (12.0-15.0); Mean Corp Hgb Conc 31.8 g/dL (32-36); Mean Corpuscular Hgb 30.1 pg (27.0-32.0); Mean Corpuscular Volume 94.7 fL (81-99); Mean Platelet Vol. 10.2 fl (6.2-12.0); Platelet Count 259 K/mm3 (150-450); RBC Distribution Width CV 12.5 % (11.6-14.6); RBC Distribution Width SD 43.4 fl (35.1-43.9); Red Blood Count 3.95 M/mm3 (4.2-5.4); White Blood Count 4.9 K/mm3 (4.4-11.0)
[2022-10-09 10:17] LABS: Ionized Calcium 4.94 mg/dL (4.36-5.20)
[2022-10-09 10:28] LABS: PTHIN 39.6 pg/mL (18.4-80.1)
[2022-10-09 10:39] LABS: Anion Gap 4 (5-15); BUN 25 mg/dL (7-18); BUN/Creat Ratio 22.9 RATIO (10-20); Calcium,Total 9.3 mg/dL (8.5-10.1); Chloride 108 mmol/L (98-107); Cholesterol 161 mg/dL (200); Creatinine, Serum 1.09 mg/dL (0.55-1.02); EST Glomerular Filtration Rate 53 mL/min (>60); Est Glom Filt Rate - Afr Amer 64 mL/min (>60); Glucose 100 mg/dL (74-106); High Density Lipoprotein 42 mg/dL; Magnesium 2.4 mg/dL (1.6-2.6); Potassium 4.1 mmol/L (3.5-5.1); Sodium Level 139 mmol/L (136-145); Thyroid Stim Hormone (TSH) 1.38 uIU/mL (0.358-3.74); Triglycerides 136 mg/dL; Very Low Density Lipoprotein 27 mg/dL (5-40)
== END | disposition home or self-care (01) ==
LOC: MFPLAB 08:26
PROVIDERS: PCP Family Medicine; Visit Provider Family Medicine
DX: K21.9 Gastro-esophageal reflux disease without esophagitis (principal); E78.5 Hyperlipidemia, unspecified; M81.0 Age-related osteoporosis without current pathological fracture
CPT/HCPCS: 36415; 80048; 80061; 82306; 82330; 83735; 83970; 84443; 85027

== ENCOUNTER → 2022-10-15 | Outpatient (CLI) | payer MEDICARE, OTHER, SELFPAY ==
--- NOTE | 2022-10-15 09:15 | RAD_ITS ---
STUDY: X-RAY - RIGHT CALCANEUS REASON FOR EXAM: Female, 72 years old. Plantar heel pain. History of plantar fasciitis. TECHNIQUE: 2 view(s) of the calcaneus were obtained. COMPARISON: None. FINDINGS: Osteopenia. Inferior calcaneal spur. Small superior calcaneal spur. Focal ossification of the distal Achilles tendon. RAD/Calcaneus min 2 Views IMPRESSION: Osteopenia with superior and inferior calcaneal spurs and focal ossification of the distal Achilles tendon. No acute abnormality or erosive changes. Electronically Signed: Erik Hearn MD at 9:26 EDT ,
== END | disposition home or self-care (01) ==
PROVIDERS: PCP Family Medicine; Referring Provider Family Medicine; Visit Provider Family Medicine
DX: M72.2 Plantar fascial fibromatosis (principal)
CPT/HCPCS: 73650

== ENCOUNTER → 2022-10-29 | Outpatient (CLI) | payer MEDICARE, OTHER, SELFPAY ==
--- NOTE | 2022-10-29 12:54 | BI_ITS ---
MAMMOGRAPHY - BILATERAL SCREENING REASON FOR EXAM: Female, 72 years old. Routine annual screening examination. PERTINENT HISTORY: Non-contributory. TECHNIQUE: Digital bilateral breast carlitos (3D mammographic acquisition) in the CC and MLO projections. 2-D mediolateral oblique (MLO) and craniocaudad (CC) views of both breasts were obtained. CAD: Full Field Digital Mammography with Computer Added Detection was performed. COMPARISON: Comparison is made with prior study dated October 28, 2021 and October 25, 2020. FINDINGS: Breast Composition: There are scattered areas of fibroglandular density. There are no dominant masses or suspicious calcifications. No other significant abnormalities are identified. There has been no significant change since the prior study. BI/SCRN MAMM (CAD)W/CARLITOS BILAT IMPRESSION: Stable bilateral screening mammogram. Yearly follow-up mammogram recommended. (A) ASSESSMENT CATEGORY: BIRADS Category 1: Negative. A letter regarding these results will be sent to the patient by the facility within 30 days. Approximately 10% of breast cancers are not detected by mammography. A normal mammogram should not delay biopsy of a clinically suspicious abnormality. [id number] Electronically Signed: Maxi Shields MD at 14:36 EDT ,
--- NOTE | 2022-10-29 12:57 | BD_ITS ---
STUDY: DUAL ENERGY X-RAY ABSORPTIOMETRY / DXA REASON FOR EXAM: Female, 72 years old. Z780 TECHNIQUE: Bone Mineral Density (BMD) measurements of lumbar spine and bilateral hips were obtained. COMPARISON: Comparison is made with prior study October 25, 2020. FINDINGS: Lumbar Spine (L1-L4): g/cm2 (0.834) / T-score (-1.8) / Z-score (0.4) Findings are suggestive of osteopenia with a moderate fracture risk. Left Femur Total: g/cm2 (0.818) / T-score (-1.0) / Z-score (0.6) Left Femoral Neck: g/cm2 (0.603) / T-score (-2.2) / Z-score (-0.3) Right Femur Total: g/cm2 (0.779) / T-score (-1.3) / Z-score (0.2) Right Femoral Neck: g/cm2 (0.605) / T-score (-2.2) / Z-score (-0.3) The T-Scores on the most recent prior examination were: Lumbar Spine (L1-L4): There has been improvement of bone density since the previous examination. Left Femur Total: which represents an improvement of 7.8%. Right Femur Total: which represents an improvement of 4.8%. BD/Dexa Bone Density Study IMPRESSION: The patient is considered osteopenic as outlined below according to World Chaim Organization (WHO) criteria with a high fracture risk. There has been improvement of bone density since the previous examination. Reference Information: The T-score is the number of standard deviations above or below the standard which is normal for young adults at their peak bone mineral density. The World Health Organization (WHO) interprets the T-scores as follows: Above -1 Normal bone density Between -1 and -2.5 Osteopenia Equal to / or below -2.5 Osteoporosis As a practical clinical guideline, osteopenia may be graded as follows: Mild -1 through -1.5 Moderate -1.6 through -2.0 Severe -2.1 through -2.4 The Z-score is the number of standard deviations above or below age-matched controls. A Z-score of less than -1.5 would be considered abnormal. References: 1. NIH Osteoporosis and Related Bone Diseases www osteo.org 2. International Society for Clinical Densitometry www iscd.org 3. National Osteoporosis Foundation www nof.org Electronically Signed: Maxi Shields MD at 9:21 EDT ,
== END | disposition home or self-care (01) ==
LOC: OPBD 12:52
PROVIDERS: PCP Family Medicine; Referring Provider Family Medicine; Visit Provider Family Medicine
DX: Z12.31 Encounter for screening mammogram for malignant neoplasm of breast (principal); Z78.0 Asymptomatic menopausal state
CPT/HCPCS: 77063; 77067; 77080

== ENCOUNTER 2023-08-19 16:45 | Emergency (ER) | payer MEDICARE, OTHER, SELFPAY ==
[2023-08-19 16:46] VITALS: BP 138/95; PULSE 90; RESP 17; TEMP 36.1; O2SAT 98; BMI 28.3
--- NOTE | 2023-08-19 17:06 | EKG12_ITS ---
Test Reason : CP Blood Pressure : / mmHG Vent. Rate : 079 BPM Atrial Rate : 079 BPM P-R Int : 182 ms QRS Dur : 092 ms QT Int : 366 ms P-R-T Axes : 041 021 029 degrees QTc Int : 419 ms Normal sinus rhythm Normal ECG Confirmed by BLAYNE CONDE, EMMANUEL ([id number]), editorial cartoonist JOANNA ZARATE ([id number]) on 08/20/2023 10:03:31 AM Referred By: Confirmed By:EMMANUEL CISNEROS MD
--- NOTE | 2023-08-19 17:07 | EDS_ITS ---
HPI History of Present Illness Chief Complaint: Chest Pain Narrative Narrative: 73-year-old female past medical history of hypertension and hypercholesterolemia presents with chest pressure that she has had since yesterday, shortness of breath, and orthopnea. She and her relate history that they both had COVID a few weeks ago. About a week ago she tested negative. While her voice seems to be improving because she was hoarse, she still has increasing shortness of breath and cough. It is difficult for her to lay flat because she starts coughing. She denies any leg swelling. No recent fevers or chills. She has had midsternal chest pressure since yesterday. She states that she went to her primary care provider today, and while she could be seen, they told her to come to the emergency department and get a CT of her chest. [facility] Medical History Wears glasses High cholesterol History of diverticulitis Gastric reflux Non-smoker History of stress test Cardiology follow-up encounter Hypertension Chest pain Home Medications ?Medication ?Instructions ?Recorded ?Last Taken ?Type aspirin 81 mg chewable tablet 81 mg PO DAILY@0800 05/23/13 10/22/20 History atorvastatin 10 mg tablet 10 mg PO QHS 05/23/13 Unknown History calcium phosphate,dibasic 77 1 tab PO BID 10/24/20 Unknown History mg-vitamin D3 400 unit tablet cholecalciferol (vitamin D3) 50 50 mcg PO DAILY 10/24/20 Unknown History mcg (2,000 unit) capsule (Vitamin D3) denosumab 60 mg/mL subcutaneous 60 mg subcut .Q6MO 10/24/20 Unknown History syringe (Prolia) famotidine 20 mg tablet (Pepcid) 20 mg PO BID 10/24/20 10/30/20 History lisinopril 20 mg tablet 20 mg PO DAILY 10/24/20 10/30/20 History vitamin B12 0.5 mg-folic acid 1 mg 1 tab PO DAILY 10/24/20 Unknown History tablet Allergy/AdvReac Type Severity Reaction Status Date / Time simvastatin AdvReac Pain in Verified 08/19/23 16:47 joints Surgical History Hx of colonoscopy Hx of bilateral cataract extraction Social History Smoking Status: Never smoker ROS ROS ED ROS Narrative Constitutional: No fever, no chills. Generalized weakness. Fatigue. HEENT: No sore throat. No neck pain. No loss of vision. No rhinorrhea. Cardiovascular: Positive midsternal chest pain. No palpitations. No pedal edema. Respiratory: Positive dry, nonproductive cough, positive orthopnea and shortness of breath. Abdominal: No abdominal pain. No nausea. No vomiting. Genitourinary: No dysuria. No hematuria. Musculoskeletal: No myalgias. No arthralgias. Neurologic: No headaches. No dizziness. No lightheadedness. Skin: No rash. No change in color. Psychiatric: No depression. No anxiety. EXAM Physical Exam Narrative Exam Narrative: Afebrile. Vital signs noted. HEENT: Normocephalic. Atraumatic. PERRL, EOMI. Neck soft and supple. No point tenderness or step off. Cardiovascular: Regular rate and rhythm. No murmurs, rubs, or gallops appreciated. Respiratory: No tachypnea. Lungs clear to auscultation bilaterally. Occasional dry cough on examination. Gastrointestinal: Abdomen soft, nontender, with normoactive bowel sounds. No rebound or guarding. Neurological: Awake. Alert. Nonfocal, nonlateralizing. Skin: No rash. Normal color. No pallor. Musculoskeletal: No pedal edema. Full range of motion extremities. Const Vital Signs: 08/19/23 16:46 08/19/23 17:09 Temperature 97 F L Temperature Source Temporal Pulse Rate 90 Respiratory Rate 17 Blood Pressure 138/95 H Blood Pressure Mean 109 Pulse Ox 98 Oxygen Delivery Method Room Air Room Air MDM MDM MDM Narrative Medical decision making narrative: In the differential diagnosis is long COVID versus pulmonary embolism status post COVID versus acute coronary syndrome versus congestive heart failure. History and physical does not support CHF and she does not appear volume overloaded. She is just on the cusp of being PERC negative, and her pulse ox is 98% on room air so I have lower suspicion for pulmonary embolism. Comprehensive workup was pursued. EKG obtained to help rule out ACS/STEMI. EKG obtained and interpreted by myself independently as normal sinus rhythm at 79 bpm without ectopy or acute ST changes. No STEMI. I reviewed her laboratory work and she has normal white count of 6.7 with hemoglobin stable at 10.6, hematocrit 32.5 with platelet count normal at 319. Electrolyte panel is significant for chloride of 108 which I think is nonspecific, BUN of 22 and creatinine 1.17. Glucose is appropriately elevated at 113. High-sensitivity troponin is 4. I feel this is greater than a 6-hour troponin and that she does not require serial enzymes. Additionally BNP was normal at 24 so I doubt congestive heart failure. I reviewed the radiology report of the CTA which shows no evidence of a pulmonary embolism or dissection. Additionally, radiology report commented on a base pulmonary nodule. I informed the patient of this finding and recommended follow-up with her primary care provider and also referred her to pulmonary medicine. At this point in time, I feel she can be discharged safely home with follow-up. Her pulse ox is 98% on room air. She states she already uses an inhaler which she will continue to use. Return instructions to the emergency department were reviewed. Disposition is discharged home in stable condition. History & Record Review Discussion w/independent historian: Patient Lab Data Attestation: I reviewed the patient's lab results. Labs: Laboratory Results - last 24 hr 08/19/23 17:11 WBC 6.7 RBC 3.53 L Hgb 10.6 L Hct 32.5 L MCV 92.1 MCH 30.0 MCHC 32.6 RDW Std Deviation 42.8 RDW Coeff of Joycelyn 13.0 Plt Count 319 MPV 8.6 Immature Gran % (Auto) 0.300 Neut % (Auto) 54.4 Lymph % (Auto) 30.6 Beauregard % (Auto) 12.8 H Eos % (Auto) 1.5 Baso % (Auto) 0.4 Absolute Neuts (auto) 3.7 Absolute Lymphs (auto) 2.06 Nucleated RBC % 0 Sodium 137 Potassium 3.6 Chloride 108 H Carbon Dioxide 25.0 Anion Gap 4 L BUN 22 H Creatinine 1.17 H Estim Creat Clear Calc 38.31 Est GFR (MDRD) Af Amer 58 L Est GFR (MDRD) Non-Af 48 L BUN/Creatinine Ratio 18.8 Glucose 113 H Calcium 9.7 Troponin I High Sens 4 B-Natriuretic Peptide 24.7 Radiography Diagnostic Testing: Clinical Impression(s) from Imaging Studies Chest CTA 08/19/23 17:50 IMPRESSION: Minimal atelectasis in the lingula. There is also is based nodule right lower lobe. No focal consolidation or effusions are identified. Electronically Signed: Steve Wilks MD at 18:10 EDT , Discharge Plan Triage Chief Complaint: Chest Pain ED Provider: Silvestre Joe Dx/Rx/DC Orders Clinical Impression: SOB (shortness of breath), Cough, Chest pain, Incidental pulmonary nodule Instructions: ED Chest Pain, Uncertain Cause, ED Dyspnea, ED Pulmonary Nodule, Solitary Prescriptions: No Action atorvastatin 10 MG tablet 10 mg PO QHS Patient Comments: AT NIGHT aspirin 81 MG tablet,chewable 81 mg PO DAILY@0800 lisinopril 20 mg Tablet 20 mg PO DAILY famotidine [Pepcid] 20 mg Tablet 20 mg PO BID vitamin H85-vratk acid 0.5-1 mg Tablet 1 tab PO DAILY Vitamin D (with calcium) 77-400 mg-unit Tablet 1 tab PO BID cholecalciferol (vitamin D3) [Vitamin D3] 50 mcg (2,000 unit) Capsule 50 mcg PO DAILY Prolia 60 mg/mL Syringe 60 mg SUBCUT .Q6MO Primary Care Provider: José Fernandez Referrals: José Fernandez MD [Primary Care Provider] - As soon as possible Sivakumar Yen DO [Med Staff - Active Staff] - As soon as possible (Pulmonary Nodule on CT scan) Activity Restrictions/Additional Instructions: You are diagnosed with a pulmonary nodule which is an incidental finding on your CT scan. Follow-up with your primary care provider and/your pulmonary medicine regarding this. Continue to use your inhaler 1 to 2 puffs inhaled every 4-6 hours as needed. Return with increased shortness of breath, new or worsening symptoms. Print Language: Bolivian Disposition Disposition: Home, Self Care
[2023-08-19] MEDS: 0.9% Normal Saline (1000mL) 1,000 ML 999 ML IV (17:12)
[2023-08-19 17:19] LABS: Absolute Lymphocyte Count 2.06 X10^3/uL (0.83-4.51); Absolute Neutrophil Count 3.7 X10^3/uL (2.0-7.7); Basophil# 0.03 X10^3/uL; Basophil% 0.4 % (0-1); Eosinophils% 1.5 % (0-5); Hematocrit 32.5 % (37-47); Hemoglobin 10.6 g/dL (12.0-15.0); Lymphocyte # 2.06 X10^3/ul (0.83-4.51); Lymphocyte % 30.6 % (19-41); Mean Corp Hgb Conc 32.6 g/dL (32-36); Mean Corpuscular Volume 92.1 fL (81-99); Mean Platelet Vol. 8.6 fl (6.2-12.0); Monocyte# 0.86 X10^3/uL; Monocyte% 12.8 % (0-10); NRBC Flagged by Analyzer 0 % (0-5); Neutrophil # 3.66 X10^3/uL (2.7-7.7); Neutrophil % 54.4 % (47-70); Platelet Count 319 K/mm3 (150-450); RBC Distribution Width SD 42.8 fl (35.1-43.9); Red Blood Count 3.53 M/mm3 (4.2-5.4); White Blood Count 6.7 K/mm3 (4.4-11.0)
[2023-08-19 17:38] LABS: Anion Gap 4 (5-15); BUN 22 mg/dL (7-18); BUN/Creat Ratio 18.8 RATIO (10-20); Calcium,Total 9.7 mg/dL (8.5-10.1); Chloride 108 mmol/L (98-107); Creatinine, Serum 1.17 mg/dL (0.55-1.02); EST Glomerular Filtration Rate 48 mL/min (>60); Est Glom Filt Rate - Afr Amer 58 mL/min (>60); Estimated Creatinine Clearance 38.31 ml/min; Glucose 113 mg/dL (74-106); Potassium 3.6 mmol/L (3.5-5.1); Sodium Level 137 mmol/L (136-145); Troponin-I HS 4 pg/mL (3.0-54.0)
[2023-08-19 17:39] LABS: BNP,B-Type NATRIURETIC PEPTIDE 24.7 pg/mL (0-100)
--- NOTE | 2023-08-19 17:50 | CT_ITS ---
EXAM: CT ANGIOGRAPHY CHEST WITHOUT AND WITH INTRAVENOUS CONTRAST CLINICAL INDICATION: Shortness of breath, chest pain TECHNIQUE: Helically acquired angiography images were obtained of the chest without and with intravenous contrast. This CT exam was performed using one or more of the following dose reduction techniques: automated exposure control, adjustment of the mA and/or kV according to patient size, and/or use of iterative reconstruction technique. MIP reconstructed images were created and reviewed. CONTRAST: IV 75mL [id number] COMPARISON: No relevant prior studies available. FINDINGS: PULMONARY ARTERIES: Unremarkable. Normal in caliber. No evidence of pulmonary embolism. AORTA: Unremarkable. Normal in caliber. No evidence of dissection. GREAT VESSELS OF AORTIC ARCH: Unremarkable. Normal in caliber. No evidence of dissection. LUNGS AND PLEURAL SPACES: There is a 4 mm pleural-based nodule in the right lower lobe series 2 image 98. There is minimal atelectasis in the lingula. No pneumothorax. HEART: Unremarkable. Heart size is normal. No pericardial effusion. No significant coronary artery calcifications. MEDIASTINUM: Unremarkable. No mediastinal or hilar adenopathy. Esophagus is unremarkable. No hiatal hernia. THYROID: Unremarkable. No thyroid lesions. BONES/JOINTS: Unremarkable. No suspicious lytic or blastic abnormality. CT/CTA Chest W/WO Contrast IMPRESSION: Minimal atelectasis in the lingula. There is also is based nodule right lower lobe. No focal consolidation or effusions are identified. Electronically Signed: Steve Wilks MD at 18:10 EDT ,
[2023-08-19 18:38] VITALS: BP 131/61; PULSE 74; RESP 18; TEMP 36.7; O2SAT 100
== END 2023-08-19 18:44 | disposition home or self-care (01) ==
PROVIDERS: Emergency Provider Emergency Medicine; PCP Family Medicine; Visit Provider Emergency Medicine
DX: R07.9 Chest pain, unspecified (principal); R06.02 Shortness of breath; I10 Essential (primary) hypertension; R91.1 Solitary pulmonary nodule; R05.9 Cough, unspecified; E78.00 Pure hypercholesterolemia, unspecified; Z87.19 Personal history of other diseases of the digestive system
CPT/HCPCS: 71275; 80048; 83880; 84484; 85025; 93005; 96360; 99284; J7030; Q9967

== ENCOUNTER → 2023-11-04 | Outpatient (CLI) | payer MEDICARE, OTHER, SELFPAY ==
--- NOTE | 2023-11-04 10:56 | BI_ITS ---
MAMMOGRAPHY - BILATERAL SCREENING REASON FOR EXAM: Female, 73 years old. Routine annual screening examination. PERTINENT HISTORY: Non-contributory. TECHNIQUE: Digital bilateral breast carlitos (3D mammographic acquisition) in the CC and MLO projections. 2-D mediolateral oblique (MLO) and craniocaudad (CC) views of both breasts were obtained. CAD: Full Field Digital Mammography with Computer Added Detection was performed. COMPARISON: Comparison is made with prior study October 29, 2022 and October 28, 2021. FINDINGS: Breast Composition: There are scattered areas of fibroglandular density. There are no dominant masses or suspicious calcifications. No other significant abnormalities are identified. There has been no significant change since the prior study. BI/SCRN MAMM (CAD)W/CARLITOS BILAT IMPRESSION: Stable bilateral screening mammogram. Yearly follow-up mammogram recommended. (A) ASSESSMENT CATEGORY: BIRADS Category 1: Negative. A letter regarding these results will be sent to the patient by the facility within 30 days. Approximately 10% of breast cancers are not detected by mammography. A normal mammogram should not delay biopsy of a clinically suspicious abnormality. [id number] Electronically Signed: Maxi Shields MD at 12:08 EDT ,
== END | disposition home or self-care (01) ==
PROVIDERS: PCP Family Medicine; Referring Provider Family Medicine; Visit Provider Family Medicine
DX: Z12.31 Encounter for screening mammogram for malignant neoplasm of breast (principal)
CPT/HCPCS: 77063; 77067

== ENCOUNTER → 2023-11-09 | Outpatient (CLI) | payer MEDICARE, OTHER, SELFPAY | END | disposition home or self-care (01) | LOC: LABSPEC 15:09 | PROVIDERS: PCP Family Medicine; Referring Provider Nurse Practitioner Family; Visit Provider Nurse Practitioner Family | DX: N39.0 Urinary tract infection, site not specified (principal) | CPT/HCPCS: 87086; 87088 ==

== ENCOUNTER → 2023-12-20 | Outpatient (CLI) | payer MEDICARE, OTHER, SELFPAY | END | disposition home or self-care (01) | LOC: LABSPEC 16:33 | PROVIDERS: PCP Family Medicine; Referring Provider Nurse Practitioner Family; Visit Provider Nurse Practitioner Family | DX: N39.0 Urinary tract infection, site not specified (principal) | CPT/HCPCS: 87086; 87088 ==

== ENCOUNTER 2024-01-15 20:37 | Emergency (ER) | payer MEDICARE, OTHER, SELFPAY ==
[2024-01-15 20:38] VITALS: BP 178/80; PULSE 83; RESP 16; TEMP 36.7; O2SAT 98; BMI 29.3
[2024-01-15 21:40] LABS: Bacteria 0 SEEN /hpf (None Seen); Mucous, Urine 0 SEEN /hpf (<or=2+); White Blood Cells 0 SEEN /hpf (0-5)
[2024-01-15 21:52] LABS: Color, Urine Yellow (Yellow); Glucose, Dipstick Normal (Normal); Ketone-Dipstick Negative (Negative); Leukocyte Esterase-Dipstick Negative /ul (Negative); Nitrite-Dipstick Negative (Negative); Occult Blood-Urine 250 /ul (Negative); Protein-Dipstick 15 mg/dl (Negative); Urine Bilirubin Dipstick Negative (Negative); Urine Clarity Clear (Clear); Urine Urobilinogen Normal (Normal)
--- NOTE | 2024-01-15 22:00 | EDS_ITS ---
HPI HPI - Female History of Present Illness Chief Complaint: Vag Bleeding Detail of Chief Complaint: Irritation and bump in vaginal area with blood Informant: patient Pain Pain: Negative for Pelvic Pain, Vulvar Pain or Vaginal Pain Bleeding Issue: Positive for Vaginal bleeding; Negative for Passing clots or Passing tissue Onset: Today Associated Symptoms Associated Symptoms: Positive for Dysuria and - (Postmenopausal); Negative for Frequency, Urgency or Hematuria Narrative Narrative: Patient is a 73-year-old woman. She has not had a pelvic exam in some years. She was told by her gynecology she no longer needs pelvic exams. She presents because of bleeding that she believes is coming from her vagina. She states she has irritation when she wipes. She has had recent recurrent urinary tract infection. Does report slight dysuria. She denies any abdominal discomfort. She denies low back pain. She does not believe she has hemorrhoids nor does she believe she is bleeding from her rectum. She is on a baby aspirin a day. She is on no anticoagulant. She has never had an abnormal Pap smear. Prior similar symptoms: No Recent Illness/Hospitalization: No [facility] Medical History Wears glasses High cholesterol History of diverticulitis Gastric reflux Non-smoker History of stress test Cardiology follow-up encounter Hypertension Chest pain Home Medications ?Medication ?Instructions ?Recorded ?Last Taken ?Type aspirin 81 mg chewable tablet 81 mg PO DAILY@0800 05/23/13 10/22/20 History atorvastatin 10 mg tablet 10 mg PO QHS 05/23/13 Unknown History calcium phosphate,dibasic 77 1 tab PO BID 10/24/20 Unknown History mg-vitamin D3 400 unit tablet cholecalciferol (vitamin D3) 50 50 mcg PO DAILY 10/24/20 Unknown History mcg (2,000 unit) capsule (Vitamin D3) denosumab 60 mg/mL subcutaneous 60 mg subcut .Q6MO 10/24/20 Unknown History syringe (Prolia) famotidine 20 mg tablet (Pepcid) 20 mg PO BID 10/24/20 10/30/20 History lisinopril 20 mg tablet 20 mg PO DAILY 10/24/20 10/30/20 History vitamin B12 0.5 mg-folic acid 1 mg 1 tab PO DAILY 10/24/20 Unknown History tablet Allergy/AdvReac Type Severity Reaction Status Date / Time simvastatin AdvReac Pain in Verified 01/15/24 20:37 joints Surgical History Hx of colonoscopy Hx of bilateral cataract extraction Social History Smoking Status: Never smoker ROS ROS ED Constitutional Constitutional ED: Denies chills, fever(s), subjective or sweats Cardiovascular Cardiovascular: Denies chest pain or palpitations Respiratory/Chest Respiratory/Chest: Denies cough, dyspnea or dyspnea on exertion Gastrointestinal Gastrointestinal: Denies abdominal pain, melena, nausea or vomiting Genitourinary Genitourinary ED: Reports dysuria; Denies hematuria or urinary frequency Musculoskeletal Musculoskeletal: Denies arthralgias, myalgias or neck pain Integumentary Denies rash Hematologic/Lymphatic Hematologic/Lymphatic: Denies easy bleeding or easy bruising EXAM Physical Exam Const Vital Signs: 01/15/24 20:38 Temperature 98.1 F Temperature Source Oral Pulse Rate 83 Respiratory Rate 16 Blood Pressure 178/80 H Blood Pressure Mean 112 Pulse Ox 98 Oxygen Delivery Method Room Air Positive well nourished and well developed General Appearance ED: well developed and NAD; Negative for odor of alcohol detected HEENT Reports moist mucous membranes Eyes PERRL and EOMs intact bilaterally General Eye ED: Negative for pale conjunctiva Resp normal respiratory effort and clear to auscultation bilaterally Cardio regular rate, regular rhythm, S1 normal heart sound, no murmurs and no JVD GI normal to inspection, nondistended, normoactive bowel sounds, soft to palpation, non-tender, non-distended and no masses Narrative: There is blood noted at the introitus and perineum. There is no obvious bleeding source. There appears to be slight inflammation of the urethra opening. Manual exam revealed no mass, enlarged uterus adnexal fullness. There was blood noted on my gloved finger. In light of this a speculum exam was done with nurse present for both the manual and speculum exam. There is no evidence of blood in the vagina. There is blood noted in the perineal region and near the rectum. There is evidence of prior hemorrhoids and present external hemorrhoids. For this reason anoscopy was performed. Anoscopy was performed. Patient does have internal hemorrhoids noted. There is no evidence of active bleeding or recent bleeding. In light of this the entire perineal area was cleaned to determine if there is any external bleeding. There is a small 1 mm laceration noted over the labia majora and this is the site of her bleeding. She is Extremity normal to inspection and full ROM Neuro oriented x3 and CN's II-XII intact bilaterally Sensorium / Orientation: alert Psych mental status grossly normal Skin no rashes or lesions noted and No no wounds Skin Narrative: Documented under the portion of the EMR MDM MDM MDM Narrative Medical decision making narrative: Because patient has urinary symptoms UA was obtained. Because of the reported vaginal bleeding and blood noted at the introitus speculum and bimanual exam was performed. There is no evidence of bleeding. There was some erythema noted at the urethral meatus concerned this may represent hematuria. UA was obtained and macro was positive for occult blood. Because there was blood noted in the perineal area and anus and no obvious external source other than what appeared to be hemorrhoids anoscopy was performed. This reveals no recent or active bleeding. Upon further examination was found the patient has a small cut involving the labia majora on the left side. This is the source of her bleeding. Will send UA because of her urinary symptoms and history of recurrent urinary tract infections to rule out UA TI. Lab Data Labs: Laboratory Results - last 24 hr 01/15/24 21:15 Urine Color Yellow Urine Clarity Clear Urine pH 6.0 Ur Specific [place] 1.010 Urine Protein 15 H Urine Glucose (UA) Normal Urine Ketones Negative Urine Occult Blood 250 H Urine Nitrite Negative Urine Bilirubin Negative Urine Urobilinogen Normal Ur Leukocyte Esterase Negative Urine RBC 5-10 SEEN Urine WBC 0 SEEN Ur Squamous Epith Cells 0-5 SEEN Urine Bacteria 0 SEEN Urine Mucus 0 SEEN Urine does not indicate infection. Therefore will discharge to home Discharge Plan Triage Chief Complaint: Vag Bleeding ED Provider: Nino Tran Dx/Rx/DC Orders Clinical Impression: Laceration of labial mucosa without complication, Internal hemorrhoids Instructions: ED Hemorrhoids, ED Laceration Superficial No Stitch Prescriptions: No Action atorvastatin 10 MG tablet 10 mg PO QHS Patient Comments: AT NIGHT aspirin 81 MG tablet,chewable 81 mg PO DAILY@0800 lisinopril 20 mg Tablet 20 mg PO DAILY famotidine [Pepcid] 20 mg Tablet 20 mg PO BID vitamin E32-udlaw acid 0.5-1 mg Tablet 1 tab PO DAILY Vitamin D (with calcium) 77-400 mg-unit Tablet 1 tab PO BID cholecalciferol (vitamin D3) [Vitamin D3] 50 mcg (2,000 unit) Capsule 50 mcg PO DAILY Prolia 60 mg/mL Syringe 60 mg SUBCUT .Q6MO Primary Care Provider: José Fernandez Referrals: José Fernandez MD [Primary Care Provider] - As Needed Print Language: Sinhala Disposition Disposition: Home, Self Care
[2024-01-15 22:01] LABS: Red Blood Cells-Urine 5-10 SEEN /hpf (0-5); Squamous Epithelial Cells - UA 0-5 SEEN /hpf (5-10)
== END 2024-01-15 22:18 | disposition home or self-care (01) ==
PROVIDERS: Emergency Provider Emergency Medicine; PCP Family Medicine; Visit Provider Emergency Medicine
DX: S31.41XA Laceration without foreign body of vagina and vulva, initial encounter (principal); N93.9 Abnormal uterine and vaginal bleeding, unspecified; Z79.82 Long term (current) use of aspirin; K64.8 Other hemorrhoids; N89.8 Other specified noninflammatory disorders of vagina; I10 Essential (primary) hypertension; E78.00 Pure hypercholesterolemia, unspecified; R30.0 Dysuria; K21.9 Gastro-esophageal reflux disease without esophagitis; Z87.440 Personal history of urinary (tract) infections; Z78.0 Asymptomatic menopausal state; X58.XXXA Exposure to other specified factors, initial encounter
CPT/HCPCS: 81001; 99282

== ENCOUNTER → 2024-02-06 | Outpatient (CLI) | payer MEDICARE, OTHER, SELFPAY ==
--- NOTE | 2024-02-06 08:49 | CT_ITS ---
INDICATION: fu RLL lung nodule. EXAMINATION: CT CHEST WITHOUT CONTRAST - CT Chest W/O Contrast Injection TECHNIQUE: Helically acquired images were obtained of the chest. The protocol utilizes one or more of the following dose reduction techniques: automated exposure control, adjustment of mA and/or kV according to patient size,and/or use of iterative reconstruction technique. IV Contrast dosage and agent: None. RADIATION DOSAGE (If Supplied By Facility): CTDIvol = ( 14.20 ) mGy, DLP = ( 457.86 ) mGycm COMPARISON: Prior study dated: 08/19/2023 FINDINGS: LUNGS, PLEURA AND LARGE AIRWAYS: The central airways are patent. No consolidation. No pulmonary mass. There is a right upper lobe nodule which measures 0.3 cm on series 2 image 29. This is unchanged. Right basilar calcified granuloma. The previous pleural-based right lower lobe nodule is no longer seen. No pleural effusion or thickening. No pneumothorax. THYROID: No thyroid lesions. HEART AND PERICARDIUM: Heart size is normal. No pericardial effusion. CORONARY ARTERIES: Coronary artery calcification is seen. VESSELS: Thoracic aorta is not dilated. MEDIASTINUM AND KASSIE: No mediastinal or hilar adenopathy. Esophagus is unremarkable. No hiatal hernia. UPPER ABDOMEN: No acute pathology. BONES: No suspicious lytic or blastic abnormality. Mild degenerative changes throughout the spine. CT/Chest without Contrast IMPRESSION: Previous pleural-based right lower lobe nodule is no longer seen. There is a 0.3 cm right upper lobe nodule which is unchanged from prior. According to the updated 2017 Fleischner Society recommendations, the advised follow-up imaging for solid nodules < 6 mm is: LOW RISK PATIENT: No routine follow-up. HIGH RISK PATIENT: Optional CT at 12 months. FLEISCHNER SOCIETY RECOMMENDATIONS FOR FOLLOW-UP OF SMALL SOLID LUNG NODULES DETECTED INCIDENTALLY ON CT (for PATIENTS ? 35 YEARS OF AGE with no known extra-pulmonary cancer and no clinical evidence of infection). Electronically Signed: Lucho Tse MD at 10:47 EST ,
== END | disposition home or self-care (01) ==
LOC: CT 08:49
PROVIDERS: PCP Family Medicine; Referring Provider Family Medicine; Visit Provider Family Medicine
DX: R91.1 Solitary pulmonary nodule (principal)
CPT/HCPCS: 71250

== ENCOUNTER → 2024-10-25 | Outpatient (CLI) | payer MEDICARE, OTHER, SELFPAY ==
[2024-10-25 12:39] LABS: Hematocrit 36.8 % (37-47); Hemoglobin 12.1 g/dL (12.0-15.0); Mean Corp Hgb Conc 32.9 g/dL (32-36); Mean Corpuscular Volume 91.8 fL (81-99); Mean Platelet Vol. 10.4 fl (6.2-12.0); Platelet Count 239 K/mm3 (150-450); RBC Distribution Width CV 12.9 % (11.6-14.6); RBC Distribution Width SD 43.7 fl (35.1-43.9); Red Blood Count 4.01 M/mm3 (4.2-5.4); White Blood Count 5.3 K/mm3 (4.4-11.0)
[2024-10-25 13:12] LABS: AST(SGOT) 24 U/L (<=31); Alanine Aminotransfer ALT/SGPT 16 U/L (<=34); Albumin, Serum 4.6 g/dL (3.4-4.8); Alkaline Phosphatase 71 U/L (35-104); Anion Gap 13 (5-15); BUN 24 mg/dL (4-19); BUN/Creat Ratio 25.7 RATIO (10-20); Calcium,Total 9.6 mg/dL (7.6-11.0); Carbon Dioxide 22.9 mmol/L (21.0-32.0); Chloride 105 mmol/L (98-108); Cholesterol 173 mg/dL (<=200); Ferritin 19 ng/mL (22-378); Globulin 2.9 g/dL (2.2-4.2); Glucose 95 mg/dL (70-99); Low Density Lipoprotein Calc. 107 mg/dL; Potassium 4.7 mmol/L (3.3-5.1); Triglycerides 102 mg/dL; Very Low Density Lipoprotein 20 mg/dL (5-40); Vitamin B12 1512 pg/mL (180-914); Vitamin D,25 Hydroxy 94.7 ng/mL (30-100); cholesterol:hdl ratio screen 3.80
[2024-10-25 14:12] LABS: Iron 48 ug/dL (50-170); Magnesium 2.3 mg/dL (1.5-2.2)
== END | disposition home or self-care (01) ==
LOC: MFPLAB 09:33
PROVIDERS: PCP Family Medicine; Referring Provider Family Medicine; Visit Provider Family Medicine
DX: R20.2 Paresthesia of skin (principal); M81.0 Age-related osteoporosis without current pathological fracture; I10 Essential (primary) hypertension
CPT/HCPCS: 36415; 80053; 80061; 82306; 82607; 82728; 83540; 83735; 84443; 85027; 85652

== ENCOUNTER → 2024-11-15 | Outpatient (CLI) | payer MEDICARE, OTHER, SELFPAY ==
--- NOTE | 2024-11-15 13:49 | BI_ITS ---
EXAM: SCRN MAMM (CAD)W/CARLITOS BILAT DATE: 11/15/2024 CLINICAL HISTORY: F, Age 74 y/o , SCREENING No family history. TECHNIQUE: Procedure Code: [id number] Modality: MG Procedure: SCRN MAMM (CAD)W/CARLITOS BILAT COMPARISON: Prior exam(s) dated November 04, 2023.. FINDINGS: TISSUE DENSITY: There are scattered areas of fibroglandular density. Bilateral Breast Mammographic Findings: No significant masses, calcifications or other abnormalities are identified. Stable small benign-appearing bilateral axillary lymph nodes No suspicious masses, areas of developing architectural distortion, or suspicious calcifications. There has been no significant interval change. BI/SCRN MAMM (CAD)W/CARLITOS BILAT IMPRESSION: Stable bilateral screening mammogram. OVERALL FINAL ASSESSMENT BI-RADS 2: BENIGN RECOMMENDATION: Routine annual follow-up in 1 Year A letter with findings and recommendations will be mailed to the patient. Reading Location: [facility]
--- NOTE | 2024-11-15 13:52 | BD_ITS ---
PROCEDURE: DEXA BONE DENSITY STUDY 11/15/2024 REASON FOR EXAM: F, age 74 y/o . Postmenopausal. TECHNIQUE: Procedure Code: BDDBD Modality: DX Procedure: DEXA BONE DENSITY STUDY COMPARISON: Prior study dated October 29, 2022. FINDINGS: BMD and T-SCORES Lumbar spine: 0.908 g/cm2, T-score -1.3 Levels: L1 through L4 Change from prior: Improvement of 8.8%. Left femoral neck: 0.6001 g/cm2, T-score -2.2 Femoral neck comparison data not recommended for monitoring change. Left total hip: 0.807 g/cm2, T-score -1.1 Change from prior: Loss of 1.3%. Right femoral neck: 0.581 g/cm2, T-score -2.4 Femoral neck comparison data not recommended for monitoring change. Right total hip: 0.773 g/cm2, T-score -1.4 Change from prior: Loss of 0.8%. The World Health Organization has defined the following categories based on bone density: Normal bone density: T-score equal to or greater than -1.0 Osteopenia: T-score between -1.0 and -2.5 Osteoporosis: T-score equal to or less than -2.5 FRAX (or Comparable) Fracture Risk Assessment: 10 Year Probability of Fracture: Major Osteoporotic Fracture: 15% Hip Fracture: 3.9% (Note: FRAX is not to be reported in setting of normal range bone density, osteoporosis on DEXA, known history of osteoporosis, prior osteoporotic hip or vertebral fracture, or for any patient undergoing pharmacological treatment for bone loss.) The National Osteoporosis Foundation (NOF) recommends pharmacological treatment for patients with a FRAX 10-year risk of 3% or higher for a hip fracture, or 20% or higher for a major osteoporotic fracture, to prevent osteoporosis and reduce fracture risk. The patient does meet the pharmacological treatment recommendations for prevention of osteoporosis. BD/Dexa Bone Density Study IMPRESSION: OSTEOPENIA. Recommend follow-up as clinically warranted. Reading Location: [place] [id number]
== END | disposition home or self-care (01) ==
LOC: OPBD 13:48
PROVIDERS: PCP Family Medicine; Referring Provider Family Medicine; Visit Provider Family Medicine
DX: Z12.31 Encounter for screening mammogram for malignant neoplasm of breast (principal); Z78.0 Asymptomatic menopausal state
CPT/HCPCS: 77063; 77067; 77080

== ENCOUNTER → 2025-02-15 | Outpatient (CLI) | payer MEDICARE, OTHER, SELFPAY ==
--- NOTE | 2025-02-15 18:18 | CT_ITS ---
PROCEDURE: CHEST WITHOUT CONTRAST 02/15/2025 REASON FOR EXAM: 1 YEAR FU FOR LUNG NODULE RLL. DUE 02/23. TECHNIQUE: CT chest was performed without IV contrast. Multiplanar reformats were generated. One or more dose reduction techniques were used (e.g., Automated exposure control, adjustment of the mA and/or kV according to patient size, use of iterative reconstruction technique RADIATION DOSE SUMMARY: CTDlvol: 11.15 mGy DLP: 364.98 mGycm COMPARISON: 02/06/2024 FINDINGS: Note that evaluation of the vasculature, jamarcus, and soft tissues is limited in the absence of IV contrast. Heart/pericardium: Aortic and trace mitral annular calcification. Aorta: Mild calcific atherosclerosis. Pulmonary arteries: Unremarkable. Lymph nodes: Unremarkable. Lungs/pleura: 3 mm medial subpleural RIGHT upper lobe nodule unchanged from 08/19/2023 (series 4, image 32). Few granulomas.. Airways: Unremarkable. Chest wall: Unremarkable. Upper abdomen: Atherosclerosis. Musculoskeletal: Mild degenerative findings. CT/Chest without Contrast IMPRESSION: 1. 3 mm RIGHT upper lobe nodule unchanged from 08/19/2023. In a high-risk renée ent, consider continued follow-up to complete 2 years of surveillance, otherwise no specific follow-up needed per the Fleischne r guidelines. Note, if there is history of known malignancy or immunosuppression, the Fleischner guidelines cannot be applied a nd closer follow-up may be warranted. 2. Additional description as above. Reading Location: [id number]
== END | disposition home or self-care (01) ==
LOC: CT 18:19
PROVIDERS: PCP Family Medicine; Referring Provider Family Medicine; Visit Provider Family Medicine
DX: R91.1 Solitary pulmonary nodule (principal)
CPT/HCPCS: 71250